=== PATIENT | female | born 1980 | race African-American/Black ===

== ENCOUNTER 2021-12-14 16:32 | Emergency (ER) | payer MEDICAID ==
[~2021-12-14] VITALS: Ht 170.2 cm; Wt 63.5 kg
[2021-12-14 17:15] LABS: Urine Bacteria NONE SEEN /hpf (None Seen); Urine Blood Negative /uL (Negative); Urine Specific Gravity 1.021 (1.001-1.035); Urine WBC 1 /hpf (0 - 5)
[2021-12-14 17:47] LABS: Basophils # (auto) 0 10 ^3/uL (0-0.2); Basophils % (auto) 0.7 % (0.0-2.0); Eosinophils # (auto) 0 10 ^3/uL (0-0.8); Eosinophils % (auto) 0.2 % (0.0-7.0); Hematocrit 37.4 % (36.0-46.0); Hemoglobin 12.7 g/dL (12.2-16.2); Lymphocytes # (auto) 1.9 10 ^3/uL (0.4-5.4); Lymphocytes % (auto) 40.8 % (10.0-50.0); Mean Corpuscular Hemoglobin 33.2 pg (28.0-32.0); Mean Corpuscular Hgb Conc. 33.8 g/dL (32.0-36.0); Mean Corpuscular Volume 98.1 fL (80.0-100.0); Monocytes # (auto) 0.3 10 ^3/uL (0-1.3); Monocytes % (auto) 5.9 % (0.0-12.0); Neutrophils # (auto) 2.5 10 ^3/uL (1.6-8.6); Neutrophils % (auto) 52.4 % (37.0-80.0); Nucleated Red Blood Cells % 0.1 %; Red Blood Cells 3.81 10^6/uL (4.0-5.20); Red Cell Distribution Width 13.8 % (11.8-14.3); White Blood Cell 4.7 10^3/uL (4.4-10.8)
[2021-12-14 18:13] LABS: Albumin 3.7 g/dL (3.4-5.0); Calcium 9.1 mg/dL (8.5-10.1); Potassium 4.1 mmol/L (3.5-5.1)
[2021-12-14 18:17] LABS: BUN/Creatinine Ratio 23.5; Bilirubin, Total 0.5 mg/dL (0.2-1.0); Total Protein 6.8 g/dL (6.4-8.2)
[2021-12-14 18:59] VITALS: BP 117/69
== END 2021-12-14 18:50 | disposition home or self-care (01) ==
LOC: ER 16:32
DX: R10.9 Unspecified abdominal pain (principal); Z90.710 Acquired absence of both cervix and uterus
CPT/HCPCS: 36415; 74022; 80053; 81001; 81025; 85025

== ENCOUNTER 2021-12-17 19:31 | Emergency (ER) | payer MEDICAID ==
[~2021-12-17] VITALS: Ht 172.7 cm; Wt 62.1 kg
[2021-12-17 20:06] LABS: Urine Bacteria FEW /hpf (None Seen); Urine Blood Negative /uL (Negative); Urine Specific Gravity 1.019 (1.001-1.035); Urine WBC 8 /hpf (0 - 5)
[2021-12-17 20:20] LABS: Basophils # (auto) 0 10 ^3/uL (0-0.2); Basophils % (auto) 0.7 % (0.0-2.0); Eosinophils # (auto) 0 10 ^3/uL (0-0.8); Eosinophils % (auto) 0.2 % (0.0-7.0); Hemoglobin 12.8 g/dL (12.2-16.2); Lymphocytes # (auto) 1.6 10 ^3/uL (0.4-5.4); Lymphocytes % (auto) 30.1 % (10.0-50.0); Mean Corpuscular Hgb Conc. 34.7 g/dL (32.0-36.0); Mean Corpuscular Volume 98.2 fL (80.0-100.0); Monocytes # (auto) 0.3 10 ^3/uL (0-1.3); Monocytes % (auto) 5.3 % (0.0-12.0); Neutrophils # (auto) 3.4 10 ^3/uL (1.6-8.6); Neutrophils % (auto) 63.7 % (37.0-80.0); Nucleated Red Blood Cells % 0.2 %; Red Blood Cells 3.77 10^6/uL (4.0-5.20); Red Cell Distribution Width 13.9 % (11.8-14.3); White Blood Cell 5.4 10^3/uL (4.4-10.8)
[2021-12-17 20:39] LABS: Albumin 3.9 g/dL (3.4-5.0); Calcium 9.2 mg/dL (8.5-10.1)
[2021-12-17 20:43] LABS: BUN/Creatinine Ratio 22.2; Bilirubin, Total 0.6 mg/dL (0.2-1.0); Total Protein 7.9 g/dL (6.4-8.2)
[2021-12-17] MEDS ORDERED: ACETAMINOPHEN 500 MG TAB PO ONE (22:30)
[2021-12-17] MEDS ORDERED: IOHEXOL 300 MG/ML 100ML BOTTLE IJ ONE (23:54)
[2021-12-18] MEDS ORDERED: CIPR500T4 PO (05:08)
[2021-12-18] MEDS ORDERED: ONDA-144 PO (05:08)
[2021-12-18] MEDS ORDERED: AMOX-277 PO (05:09)
[2021-12-18 05:38] VITALS: BP 117/83
== END 2021-12-18 05:38 | disposition home or self-care (01) ==
LOC: ER 19:31
DX: K52.9 Noninfective gastroenteritis and colitis, unspecified (principal); N39.0 Urinary tract infection, site not specified; Z90.710 Acquired absence of both cervix and uterus
CPT/HCPCS: 36415; 74177; 80053; 81001; 85025; 99285; Q9967

== ENCOUNTER 2022-05-10 07:00 | Day surgery (SDC) | payer MEDICAID ==
[~2022-05-10] VITALS: Ht 175.3 cm; Wt 63.5 kg
[~2022-05-10 07:00] MED LIST: ASPI-543 PO; ESTR1TAB5 PO; LEVO75CA3 PO
[2022-05-10] MEDS ORDERED: VERAPAMIL 2.5MG/ML INJ 2ML VIAL IV ONE (10:07)
[2022-05-10] MEDS ORDERED: NITROGLYCERIN 5MG/ML 10ML VIAL IV ONE (10:07)
[2022-05-10] MEDS ORDERED: ANGIOMAX 250 MG VIAL IV ONE (10:07)
[2022-05-10] MEDS ORDERED: LIDOCAINE 2%HCL (LOCAL ANESTH.) INJ 20ML MDV ONE (10:08)
[2022-05-10] MEDS ORDERED: SODIUM CHL 0.9% 0 ML ONE (10:08)
[2022-05-10] MEDS ORDERED: fentaNYL CITRATE 100 MCG/2 ML VL ONE (10:08)
[2022-05-10] MEDS ORDERED: MIDAZOLAM HCL 2MG/2ML 2ml VIAL (1mg/ml) ONE (10:08)
[2022-05-10] MEDS ORDERED: SODIUM CHL 0.9% 50 ML ONE (10:10)
[2022-05-10] MEDS ORDERED: IOHEXOL 350 MG/ML 100ML IJ ONE (10:14)
[2022-05-10] MEDS ORDERED: HEPARIN SODIUM (PORCINE) 5000 UNITS/ML 1ML VIAL ONE (10:20)
[2022-05-10 10:40] VITALS: BP 104/63
[2022-05-10 10:55] VITALS: BP 103/70
[2022-05-10 11:10] VITALS: BP 107/62
[2022-05-10 11:25] VITALS: BP 99/62
[2022-05-10 11:40] VITALS: BP 105/61
[2022-05-10 12:10] VITALS: BP 101/66
== END 2022-05-10 12:48 | disposition home or self-care (01) ==
LOC: CATH 07:00
PROVIDERS: ATTEND Internal Medicine Cardiovascular Disease
DX: R94.39 Abnormal result of other cardiovascular function study (principal); I25.10 Atherosclerotic heart disease of native coronary artery without angina pectoris; Z90.710 Acquired absence of both cervix and uterus; Z98.890 Other specified postprocedural states; Z79.899 Other long term (current) drug therapy; Z20.822 Contact with and (suspected) exposure to COVID-19
CPT/HCPCS: 93458; C1769; C1887; C1894; J1644; J2250; J3010; J3490; Q9967; U0003; 99152

== ENCOUNTER → 2024-01-07 | Outpatient (CLI) | payer MEDICAID ==
[~2024-01-07] MED LIST changes: +IOHEXOL 350 MG/ML 100ML IJ ONE
[2024-01-07 15:23] VITALS: BP 125/74; PULSE 73; RESP 16; O2SAT 100
[2024-01-07 15:35] VITALS: BP 123/78; PULSE 67; RESP 16; O2SAT 100
== END | disposition home or self-care (01) ==
LOC: Rad HDHVI 15:03
PROVIDERS: ATTEND Internal Medicine Cardiovascular Disease
DX: K22.4 Dyskinesia of esophagus (principal); Z79.899 Other long term (current) drug therapy; Z88.8 Allergy status to other drugs, medicaments and biological substances
CPT/HCPCS: 71275; G0463; Q9967

== ENCOUNTER → 2024-02-04 | Outpatient (CLI) | payer MEDICAID ==
[~2024-02-04] MED LIST changes: -IOHEXOL 350 MG/ML 100ML IJ ONE
== END | disposition home or self-care (01) ==
LOC: Rad HDHVI 14:00
PROVIDERS: ATTEND Internal Medicine Cardiovascular Disease
DX: I08.1 Rheumatic disorders of both mitral and tricuspid valves (principal); I10 Essential (primary) hypertension
CPT/HCPCS: 93306

== ENCOUNTER 2025-02-15 14:05 | Inpatient (IN) | payer MEDICAID ==
[~2025-02-15] VITALS: Ht 175.3 cm; Wt 73.4 kg
[~2025-02-15 14:05] MED LIST changes: +ACYC1TAB2 PO; +ATOR20TA PO; +DICL1GEL73 TOP; +ESTR2TAB4 PO; +IVAB1TAB2 PO; +LEVO25TA6 PO; +LIDO1PAD55 TOP; +NITR0.2D5 TOP; +TRAZ-227 PO; +VENL1TAB97 PO
--- NOTE | 2025-02-15 14:52 | ED.PDOC ---
HPI Comments 44 y/o F, with PMHx of CHF, ST, and POTT's presents to the ED for CC of chest pain. Patient states, that she has been experiencing substernal intermittent chest pain onset, Friday (02/13/25). Patient relays, symptoms have now worsened with associated fatigue, dizziness, and nausea. Patient denies shortness of breath, palpitations, headache, or abdominal pain. No other symptoms or modifying factors present at this time. Chief Complaint: Chest Pain Time Seen by MD: 14:25 Primary Care Provider: [facility] Reviewed Notes: Nurses Notes, Medications, Allergies Allergies: Coded Allergies: NO KNOWN ALLERGIES (Unverified , 05/08/22) Home Meds Reported Medications Estradiol (Estrace) 1 Mg Tab, 1 TAB PO DAILY for hormone therapy, #30 TAB 11 Refills 05/08/22 Aspirin (Aspir-Low) 81 Mg Tab, 81 MG PO DAILY for chest pain, MG 05/08/22 Levothyroxine Sodium (Levothyroxine Sodium) 75 Mcg Cap, 75 MCG PO DAILY for hypothyroidism, CAP 05/08/22 Information Source: Patient Mode of Arrival: Ambulatory Severity: Moderate Timing: Days Duration: Since onset Prehospital treatment: None Location: Substernal Radiation: No Radiation Onset: At Rest Cardiac Risk Factors: None PE Risk Factors: None History of: None Modifying Factors: Nothing Associated Signs and Symptoms: None Past Medical History PAST MEDICAL HISTORY: CHF Past Medical History (Other): ST, MATOS Surgical History: Hysterectomy [employer] History: Endometriosis, Ovarian Cysts Family History Family History: Reviewed,noncontributory to illness Social History Smoker: Non-Smoker Alcohol: Denies ETOH Use Drugs: Denies Drug Use Lives In: Home Constitutional: reports: fatigue; denies: chills, diaphoresis, fever, malaise, sweats, weakness, others EENTM: denies: blurred vision, double vision, ear bleeding, ear discharge, ear drainage, ear pain, ear ringing, eye pain, eye redness, hearing loss, mouth pain, mouth swelling, nasal discharge, nose bleeding, nose congestion, nose pain, photophobia, tearing, throat pain, throat swelling, voice changes, others Respiratory: denies: cough, hemoptysis, orthopnea, SOB at rest, shortness of breath, SOB with excertion, stridor, wheezing, others Cardiovascular: reports: chest pain; denies: dizzy spells, diaphoresis, Dyspnea on exertion, edema, irregular heart beat, left arm pain, lightheadedness, palpitations, PND, syncope, others Gastrointestinal: reports: nausea; denies: abdomen distended, abdominal pain, blood streaked bowels, constipated, diarrhea, dysphagia, difficulty swallowing, hematemesis, melena, poor appetite, poor fluid intake, rectal bleeding, rectal pain, vomiting, others Genitourinary: denies: abnormal vagina bleeding, burning, dyspareunia, dysuria, flank pain, frequency, hematuria, incontinence, pain, , vagina discharge, urgency, others Neurological: reports: dizziness; denies: fainting, headache, left sided numbness, left sided weakness, numbness, paresthesia, pre-existing deficit, right sided numbness, right sided weakness, seizure, speech problems, tingling, tremors, weakness, others Musculoskeletal: denies: back pain, gout, joint pain, joint swelling, muscle pain, muscle stiffness, neck pain, others Integumetry: denies: bruises, change in color, change in hair/nails, dryness, laceration, lesions, lumps, rash, wounds, others Allergic/Immunocompromised: denies: Difficulty Healing, Frequent Infections, Hives, Itching, others Hematologic/Lymphatic: denies: anemia, blood clots, easy bleeding, easy bruising, swollen glands, others Endocrine: denies: excessive hunger, excessive sweating, excessive thirst, excessive urination, flushing, intolerance to cold, intolerance to heat, unexplained weight gain, unexplained weight loss, others Psychiatric: denies: anxiety, bipolar disorder, depression, hopeless, panic disorder, schizophrenia, sleepless, suicidal, others All Other Systems: Reviewed and Negative Physical Exam General Appearance: Moderate Distress HEENT: Normal ENT Inspection, Pharynx Normal, TMs Normal Neck: Full Range of Motion, Non-Tender, Normal, Normal Inspection Respiratory: Chest Non-Tender, Lungs Clear, No Accessory Muscle Use, No Respiratory Distress, Normal Breath Sounds Cardiovascular: No Edema, No JVD, No Murmur, No Gallop, Normal Peripheral Pulses, Regular Rate/Rhythm Breast Exam: Deferred Gastrointestinal: No Organomegaly, Non Tender, No Pulsatile Mass, Normal Bowel Sounds, Soft Genitalia: Deferred Pelvic: Deferred Rectal: Deferred Extremities: No calf tenderness, Normal capillary refill, Normal inspection, Normal range of motion, Non-tender, No pedal edema Musculoskeletal : Apperance: Normal Neurologic: Alert, act tutor II-XII nml as Tested, No Motor Deficits, Normal Affect, Normal Mood, No Sensory Deficits Cerebellar Function: Normal Reflexes: Normal Skin: Dry, Normal Color, Warm Peripheral Pulses: 3+ Radial (R), 3+ Radial (L) Lymphatic: No Adenopathy Was a procedure done? Was a procedure done?: No CP Differential Dx Differential Diagnosis: A-fib, A-Flutter, Angina, Anxiety / Panic Attack, Atrial Dysrhythmia, Electrolyte Disorder, [place], Sinus Tachycardia Differential Diagnosis: HTN Essential, HTN Accelerated X-Ray, Labs, Meds, VS Vital Signs Date Time Temp Pulse Resp B/P (MAP) Pulse Ox O2 Delivery O2 Flow Rate FiO2 02/15/25 14:12 64 02/15/25 14:07 97.7 67 20 107/76 (86) 99 97.7 Lab Test 02/15/25 14:10 Range/Units Troponin I High Sensitivity < 3 L </=34 ng/L Patient alert. Complaining of chest pain. Vitals stable. Answering questions. Has a chronic cardiac condition. History of CHF. Cardiac marker within normal limits. Continues to have chest pain. Time of 1ST Reevaluation: 14:55 Reevaluation 1ST: Unchanged Patient Education/Counseling: Diagnosis, Treatment Family Education/Counseling: No Family Present SEPSIS Sepsis Screen Date sepsis recognized/suspect: Feb 15, 2025 Time Sepsis recognized/suspect: 1407 Recent Procedure: No On Antibiotic Therapy: No Respiratory Rate >20: No Heart Rate >90: No Temp<36 C (96.8 F) or >38.3 C: No SBP <90 or MAP <65 mmHG: No New Acute Mental Status Change: No Is the patient on CPAP, BIPAP,: No Physician Orders Electrocardigram (02/15/25 14:07) Electrocardigram (02/15/25 15:07) Electrocardigram (02/15/25 17:07) Troponin-I Hs (02/15/25 15:07) Troponin-I Hs (02/15/25 17:07) Vital Signs Date Time Temp Pulse Resp B/P (MAP) Pulse Ox O2 Delivery O2 Flow Rate FiO2 02/15/25 14:12 64 02/15/25 14:07 97.7 67 20 107/76 (86) 99 97.7 Departure 1 Departure Time of Disposition: 15:02 Impression: Primary Impression: Chest pain of unknown etiology Disposition: ADMITTED INPATIENT Admit to: Med Surg Condition: Guarded Critical Care Note Critical Care Time?: No Stability Stability form required: No Heart Score Heart Score: Heart Score Response (Comments) Value History Slightly Suspicious 0 EKG N/A 0 Age <45 0 Risk Factors 1 or 2 risk factors 1 Troponin Normal limit 0 Total 1 I personally scribed for FEDERICA OLIVEIRA MD ([email or web address]) on 02/15/25 at 14:52. Electronically submitted by Moni Cueva ([email or web address]). FEDERICA OLIVEIRA MD Feb 15, 2025 14:52
[2025-02-15 15:17] LABS: Hematocrit 43.7 % (36.0-46.0); Hemoglobin 14.7 g/dL (12.2-16.2); Mean Corpuscular Hemoglobin 32.6 pg (28.0-32.0); Mean Corpuscular Volume 96.9 fL (80.0-100.0); Nucleated Red Blood Cells % 0.1 %
[2025-02-15 15:21] LABS: Potassium 3.8 mmol/L (3.5-5.1); Sodium 144 mmol/L (136-145)
[2025-02-15 15:22] LABS: Anion Gap 7 (5-15); Calcium 9.5 mg/dL (8.7-10.4); Carbon Dioxide 26 mmol/L (20-31)
[2025-02-15 15:27] LABS: BUN/Creatinine Ratio 15.8 (10.0-20.0); Blood Urea Nitrogen 15 mg/dL (9-23); Chloride 111 mmol/L (98-107); Glucose 95 mg/dL (74-106)
[2025-02-15 16:15] LABS: Urine Protein, UAD Negative (Negative)
[2025-02-15] MEDS ORDERED: ACETAMINOPHEN 325 MG TAB PO PRN (18:30)
--- NOTE | 2025-02-15 21:30 | DVHHP2 ---
History of Present Illness Reason for Visit: Chest pain of unknown etiology History of Present Illness The patient is a 44-year-old female with past medical history of thyroid disease, CHF, sinus tachycardia, and MATOS who presented to [facility] ED with complaint of chest pain. Patient reports she has been experi encing substernal intermittent chest pain since on Thursday February 13, 2025. Patient reports symptoms progressively get worse with fatigue, nausea, dizziness, getting worse that prompted this visit. Patient was seen and evaluated in the ED, laboratory data shows WBC 6.7, platelets 207, sodium 144, potassium 3.8, BUN 15, creatinine 0.95, glucose 95, troponin < 3, BNP 4.33, TSH 1.47, blood pressure 115/72, heart rate 59, temperature 97.7 F, O2 saturation 99% on room air. Please see medication orders section in the computer. On my assessment, patient denied chest pain at this moment, no palpitations, no headache, no dizziness, no diaphoresis, no shortness of breath, no nausea, no vomiting, no fever, no chills. Patient was admitted for further evaluation and medical management. Past Medical History CHF, ST, MATOS, Thyroid Endometriosis, Ovarian Cysts Past Surgical History Hysterectomy Family History Reviewed, noncontributory to the management of this case. Past Social History The patient lives at home, denies smoking, alcohol or illicit drugs abuse. Review of Systems Constitutional: Yes: Weakness, Other (Fatigue); No: Fever, Chills, Sweats, Malaise Eyes: No: Pain, Vision change, Conjunctivae inflammation, Eyelid inflammation, Other, Redness ENT: No: Ear pain, Ear discharge, Nose pain, Nose discharge, Nose congestion, Mouth pain, Mouth swelling, Throat pain, Throat swelling, Other Respiratory: No: Cough, Dry, Shortness of breath, SOB with excertion, Wheezing, Hemoptysis, Pleuritic Pain, Sputum, Wheezing, Other Cardiovascular: Chest Pain; No: Palpitations, Orthopnea, Paroxysmal Noc. Dyspnea, Edema, Lt Headedness, Other Gastrointestinal: Nausea; No: Vomiting, Abdominal Pain, Diarrhea, Constipation, Melena, Hematochezia, Other Genitourinary: No Dysuria, No Frequency, No Incontinence, No Hematuria, No Retention, No Other Musculoskeletal: No: other, neck pain, shoulder pain, arm pain, back pain, hand pain, leg pain, foot pain Skin: No: Rash, Lesions, Jaundice, Bruising, Other Neurological: Other (Dizziness); No: Weakness, Numbness, Incoordination, Change in speech, Confusion, Seizures Allergies: Coded Allergies: NO KNOWN ALLERGIES (Unverified , 05/08/22) Medications Current Medications Medications Dose Ordered Sig/Mady Route Start Time Stop Time Status Last Admin Dose Admin Aspirin 81 mg DAILY PO 02/16/25 10:00 Levothyroxine Sodium 75 mcg QAM@0600 PO 02/16/25 06:00 UNV Atorvastatin Calcium 10 mg HS PO 02/15/25 22:00 Acetaminophen/ Hydrocodone Bitart 1 tab Q4HP PRN PO 02/15/25 18:30 Ondansetron HCl 4 mg Q4HP PRN IV 02/15/25 18:30 Docusate Sodium 100 mg BIDPRN PRN PO 02/15/25 18:30 Acetaminophen 650 mg Q6HP PRN PO 02/15/25 18:30 Exam Vital Signs Vital Signs Date Time Temp Pulse Resp B/P (MAP) Pulse Ox O2 Delivery O2 Flow Rate FiO2 02/15/25 15:40 59 18 100 Room Air 02/15/25 15:40 115/72 (86) 02/15/25 14:07 97.7 97.7 General Appearance: Alert, Oriented X3, Cooperative, No acute distress HEENT: Atraumatic, PERRLA, EOMI, Mucous membr. moist/pink Respiratory: Clear to auscultation, Normal air movement Cardiovascular: Regular rate, Normal S1, Normal S2, No murmurs Abdominal: Normal bowel sounds, Soft, No tenderness, No hepatospenomegaly, No masses Extremities: No clubbing, No cyanosis, No edema, Normal pulses, No tenderness/swelling Skin: No rashes, No breakdown, No significant lesion Neuro: Normal speech, Normal tone, Sensation intact, Cranial nerves 3-12 NL, R eflexes 2+, Other (Generalized weakness) Psych/Mental Status: Mental status NL, Mood NL Labs/Xrays Chest pain of unknown etiology Labs Test 02/15/25 16:06 02/15/25 15:23 02/15/25 14:10 Range/Units Urine Color Yellow Yellow Urine Clarity Clear Clear Urine pH 5.5 5.0-9.0 Urine Specific [place] 1.031 1.001-1.035 Urine Protein Negative Negative Urine Ketones Negative Negative Urine Blood Negative Negative /uL Urine Nitrite Negative Negative Urine Bilirubin Negative Negative Urine Urobilinogen Normal Negative mg/dL Urine Leukocyte Esterase Negative Negative /uL Urine RBC 1 0 - 4 /hpf Urine Microscopic WBC < 1 0-5 /HPF Urine Squamous Epithelial Cells Few <5 /hpf Urine Bacteria None seen None Seen /hpf Urine Mucus Few None Seen Urine Glucose Normal Normal mg/dL Troponin I High Sensitivity < 3 L </=34 ng/L White Blood Count 6.7 4.4-10.8 10^3/uL Red Blood Count 4.51 4.0-5.20 10^6/uL Hemoglobin 14.7 12.2-16.2 g/dL Hematocrit 43.7 36.0-46.0 % Mean Corpuscular Volume 96.9 80.0-100.0 fL Mean Corpuscular Hemoglobin 32.6 H 28.0-32.0 pg Mean Corpuscular Hemoglobin Concent 33.7 32.0-36.0 g/dL Red Cell Distribution Width 12.9 11.8-14.3 % Platelet Count 207 140-450 10^3/uL Mean Platelet Volume 7.9 6.9-10.8 fL Neutrophils (%) (Auto) 55.0 37.0-80.0 % Lymphocytes (%) (Auto) 37.9 10.0-50.0 % Monocytes (%) (Auto) 5.9 0.0-12.0 % Eosinophils (%) (Auto) 0.5 0.0-7.0 % Basophils (%) (Auto) 0.7 0.0-2.0 % Neutrophils # (Auto) 3.7 1.6-8.6 10 ^3/uL Lymphocytes # (Auto) 2.5 0.4-5.4 10 ^3/uL Monocytes # (Auto) 0.4 0-1.3 10 ^3/uL Eosinophils # (Auto) 0 0-0.8 10 ^3/uL Basophils # (Auto) 0 0-0.2 10 ^3/uL Nucleated Red Blood Cells 0.1 % Sodium Level 144 136-145 mmol/L Potassium Level 3.8 3.5-5.1 mmol/L Chloride Level 111 H 98-107 mmol/L Carbon Dioxide Level 26 20-31 mmol/L Anion Gap 7 5-15 Blood Urea Nitrogen 15 9-23 mg/dL Creatinine 0.95 0.550-1.02 mg/dL Glomerular Filtration Rate Calc 75 >90 mL/min BUN/Creatinine Ratio 15.8 10.0-20.0 Serum Glucose 95 74-106 mg/dL Calcium Level 9.5 8.7-10.4 mg/dL B-Type Natriuretic Peptide 4.53 0-100 pg/mL Thyroid Stimulating Hormone (TSH) 1.47 0.55-4.78 uIU/mL Assessment/Plan Assessment/Plan Chest pain of unknown etiology Generalized weakness Plan 1. Admit to telemetry unit 2. Breathing treatment 3. Pain control management 4. Management of fluids and electrolytes 5. Consultation for hospitalist 6. Diagnostic tests chest x-ray 7. DVT prophylaxis on aspirin 8. Repeat labs CBC, CMP in a.m. 9. Continue with current medical management 10. Treatment plan discussed with patient and RN. Patient verbalized understanding. Plan discussed with: Patient, Other (RN) My Orders Orders - JESE AMBRIZ DNP Procedure Category Date Status Time Aspirin Tablet PHA 02/16/25 In Process 10:00 Levothyroxine Tablet PHA 02/16/25 Logged (Synthroid Tablet) 06:00 Atorvastatin (Lipitor) PHA 02/15/25 In Process 22:00 Allergies DANILO 02/15/25 In Process 18:29 Code Status CODE 02/15/25 Transmitted 18:29 Oxygen Per Hour RT 02/15/25 Transmitted 18:29 Hydrocodone-Acet PHA 02/15/25 In Process 5/325mg Tab ([place] 18:30 Ondansetron Hcl PHA 02/15/25 In Process (Zofran) 18:30 Docusate Sodium PHA 02/15/25 In Process Capsule (Colace 18:30 Complete Blood Count LAB 02/16/25 Verified 04:00 Comprehensive LAB 02/16/25 Verified Metabolic Panel 04:00 Cardiac DIET 02/15/25 Transmitted Diet-2gna,Lofat,Lochol Dinner Condition: Serious DANILO 02/15/25 In Process 18:29 Acetaminophen Tablet PHA 02/15/25 In Process (Tylenol Tablet) 18:30 Bedrest With Bathroom DANILO 02/15/25 In Process Privileg 18:29 Sequential DANILO 02/15/25 In Process Compression Device Admit ADMIT 02/15/25 Verified 21:14 Nitroglycerin PHA 02/15/25 Verified Sublingual (Ntrostat 21:15 Morphine Sulfate [facility] 02/15/25 Verified Injection 21:15 Stat Ekg For Chest [facility] 02/15/25 Verified Pain 21:14 Notify Md Of Changes [facility] 02/15/25 Verified From Base 21:14 Electrician Substation For [facility]ANNER 02/15/25 Verified 24 Hours 21:14 Emergency Dysrhythmia [facility] 02/15/25 Verified Protocol 21:14 Rhythm Strips Once [facility] 02/15/25 Verified Every Shift 21:14 Oxygen By Nasal RT 02/15/25 Verified Cannula 21:14 Problem List: (1) Chest pain of unknown etiology (2) Generalized weakness Date of Service: Feb 15, 2025 Billing Provider: JESE AMBRIZ DNP Common Visit Codes: [id number] INP/OBS CARE (HIGH) JESE AMBRIZ DNP Feb 15, 2025 21:30
[2025-02-15] MEDS: ATORVASTATIN 20 MG TAB PO SCH (22:00)
[2025-02-16] VITALS (7 sets, daily range): BP systolic 102–117; BP diastolic 63–77; PULSE 60–74; RESP 13–18; TEMP 97.5–98.6; O2SAT 96–100
[2025-02-16] MEDS: MORPHINE SULFATE INJ 2 MG/ml SYRG IV PRN (04:48)
[2025-02-16] MEDS: LEVOTHYROXINE SODIUM 25 MCG TAB PO SCH (04:56)
[2025-02-16 05:01] LABS: Hematocrit 42.8 % (36.0-46.0); Hemoglobin 14.6 g/dL (12.2-16.2); Mean Corpuscular Hemoglobin 32.5 pg (28.0-32.0); Mean Corpuscular Volume 95.3 fL (80.0-100.0); Nucleated Red Blood Cells % 0.1 %
[2025-02-16 05:19] LABS: Alanine Aminotransferase 18 U/L (7-40); Albumin 4.5 g/dL (3.2-4.8); Alkaline Phosphatase 67 U/L (46-116); Anion Gap 6 (5-15); BUN/Creatinine Ratio 11.5 (10.0-20.0); Bilirubin, Total 0.7 mg/dL (0.2-1.0); Blood Urea Nitrogen 10 mg/dL (9-23); Calcium 9.6 mg/dL (8.7-10.4); Carbon Dioxide 26 mmol/L (20-31); Glucose 89 mg/dL (74-106); Potassium 4.0 mmol/L (3.5-5.1); Sodium 142 mmol/L (136-145); Total Protein 7.3 g/dL (5.7-8.2)
[2025-02-16 05:23] LABS: Chloride 110 mmol/L (98-107)
[2025-02-16] MEDS: NITROGLYCERIN 0.4 MG SL TAB SL PRN (07:35)
[2025-02-16] MEDS: ONDANSETRON HCL 4 MG/2 ML VIAL IV PRN (08:18)
--- NOTE | 2025-02-16 14:24 | ECG ---
[facility] Test Date: 2025-02-15 Test Time: 14:12:12 Pat Name: DOE THOMPSON Department: ER Room: 0297T Gender: F Conference Translator: DEEDEE : 1980 Requested By: FEDERICA OLIVEIRA Order Number: [id number] Reading MD: Anthony Lowe Measurements Intervals [place] Rate: 64 P: 74 TN: 165 QRS: 34 QRSD: 86 T: 65 QT: 420 QTc: 434 Interpretive Statements Sinus rhythm Probable left atrial enlargement Left ventricular hypertrophy ST elev, probable normal early repol pattern Electronically Signed On 02-19-2025 19:53:03 PDT by Anthony Lowe Please click the below link to view image of tracing.
[2025-02-17] VITALS (8 sets, daily range): BP systolic 100–125; BP diastolic 53–82; PULSE 57–89; RESP 17–21; TEMP 96.7–98.2; O2SAT 98–100
--- NOTE | 2025-02-17 17:02 | DVHINCON2 ---
Date Seen: Feb 17, 2025 Referring Physician MD Jacquelyn Reason for Consultation Chest pain History of Present Illness This is a 44-year-old female patient who presents to the emergency room with chief complaint of chest pain. The patient reports that the chest pain began approximately four days ago. She describes the pain as unprovoked, pressure- like in nature, substernal, with some radiation under her left breast. Associated symptoms include shortness of breath. She describes worsening of pain when lying flat. Initial twelve lead electrocardiogram reveals normal sinus rhythm with left ventricular hypertrophy. Troponin levels have been negative. Significant past medical history includes congestive heart failure, myocardial infarction without stent placement, tricuspid and mitral regurgita tion, dyslipidemia, postural orthostatic tachycardia syndrome (POTS), thyroid disease, CVA without residual deficit, vaginal cancer status post total hysterectomy, and asthma. The patient reports that she sees syrup mixer assistant out of [facility]. She states that she had a coronary angiogram with left heart catheterization in October 2023, in which no catheter based intervention was deemed necessary. Past Medical History Past medical history reviewed. No other significant than mentioned above. Past Surgical History Total hysterectomy Appendectomy Family History: Diabetes mellitus G8 MOTHER Family History Family history reviewed. Social History Denies the use of tobacco, alcohol or illicit drugs. Allergies: Coded Allergies: NO KNOWN ALLERGIES (Unverified , 05/08/22) Home Meds Reported Medications Venlafaxine Hydrochloride (Venlafaxine Hcl) 37.5 Mg Tab, 37.5 MG PO, TAB 02/16/25 Ivabradine Hydrochloride (Corlanor) 7.5 Mg Tab, 7.5 MG PO, TAB 25 Atorvastatin Calcium (Lipitor) 20 Mg Tab, 20 MG PO, TAB 25 Estradiol (Estrace) 1 Mg Tab, 1 TAB PO DAILY for hormone therapy, #30 TAB 11 Refills 05/08/22 Aspirin (Aspir-Low) 81 Mg Tab, 81 MG PO DAILY for chest pain, MG 05/08/22 Levothyroxine Sodium (Levothyroxine Sodium) 75 Mcg Cap, 75 MCG PO DAILY for hypothyroidism, CAP 05/08/22 Home Meds Home medications reviewed. Review of Systems Constitutional: No symptom reported Ears, Nose, & Throat: No symptom reported Eyes: No symptom reported Neurological: No symptoms reported Pulmonary/Respiratory: No symptoms reported Cardiovascular: Chest pain Gastrointestinal: No symptom reported Genitourinary: No symptom reported Musculoskeletal: No symptom reported Skin: No symptom reported Psychiatric: No symptom reported Endocrine: No symptom reported Hematologic/Lymphatic: No symptom reported Vital Signs Vital Signs Date Time Temp Pulse Resp B/P (MAP) Pulse Ox O2 Delivery O2 Flow Rate FiO2 02/17/25 12:46 97.4 64 21 109/68 (82) 100 97.4 02/17/25 08:00 Room Air* 0 21 Physical Exam General Appearance: Cooperative. Well-developed. Well-nourished. No acute distress. Pulmonary/Respiratory: Clear, bilateral breaths sounds. Cardiovascular/Chest: Regular rate and rhythm. Peripheral Pulses: 2+ Radial (R). 2+ Radial (L). 2+ Pedal (R). 2+ Pedal (L) Abdominal Exam: Normal bowel sounds. Ankle Exam: Negative ankle edema Lower extremities: Negative lower extremity edema Neuro/Mental Status: A/OX4, coherent. Thoughts/Psych: Normal thought pattern. Appropriate mood and affect. Good judgment and insight. Appearance: No acute distress. Skin Exam: Normal inspection. Normal color. Warm and dry. Labs/Diagnostic Data Labs Test 02/16/25 04:32 02/15/25 16:06 02/15/25 15:23 02/15/25 14:10 Range/Units White Blood Count 6.9 4.4-10.8 10^3/uL Red Blood Count 4.50 4.0-5.20 10^6/uL Hemoglobin 14.6 12.2-16.2 g/dL Hematocrit 42.8 36.0-46.0 % Mean Corpuscular Volume 95.3 80.0-100.0 fL Mean Corpuscular Hemoglobin 32.5 H 28.0-32.0 pg Mean Corpuscular Hemoglobin Concent 34.2 32.0-36.0 g/dL Red Cell Distribution Width 13.0 11.8-14.3 % Platelet Count 211 140-450 10^3/uL Mean Platelet Volume 8.1 6.9-10.8 fL Neutrophils (%) (Auto) 48.5 37.0-80.0 % Lymphocytes (%) (Auto) 42.2 10.0-50.0 % Monocytes (%) (Auto) 7.8 0.0-12.0 % Eosinophils (%) (Auto) 0.8 0.0-7.0 % Basophils (%) (Auto) 0.7 0.0-2.0 % Neutrophils # (Auto) 3.4 1.6-8.6 10 ^3/uL Lymphocytes # (Auto) 2.9 0.4-5.4 10 ^3/uL Monocytes # (Auto) 0.5 0-1.3 10 ^3/uL Eosinophils # (Auto) 0.1 0-0.8 10 ^3/uL Basophils # (Auto) 0 0-0.2 10 ^3/uL Nucleated Red Blood Cells 0.1 % Sodium Level 142 136-145 mmol/L Potassium Level 4.0 3.5-5.1 mmol/L Chloride Level 110 H 98-107 mmol/L Carbon Dioxide Level 26 20-31 mmol/L Anion Gap 6 5-15 Blood Urea Nitrogen 10 9-23 mg/dL Creatinine 0.87 0.550-1.02 mg/dL Glomerular Filtration Rate Calc 83 >90 mL/min BUN/Creatinine Ratio 11.5 10.0-20.0 Serum Glucose 89 74-106 mg/dL Calcium Level 9.6 8.7-10.4 mg/dL Total Bilirubin 0.7 0.2-1.0 mg/dL Aspartate Amino Transferase (AST) 27 <34 U/L Alanine Aminotransferase (ALT) 18 7-40 U/L Alkaline Phosphatase 67 46-116 U/L Total Protein 7.3 5.7-8.2 g/dL Albumin 4.5 3.2-4.8 g/dL Urine Color Yellow Yellow Urine Clarity Clear Clear Urine pH 5.5 5.0-9.0 Urine Specific [place] 1.031 1.001-1.035 Urine Protein Negative Negative Urine Ketones Negative Negative Urine Blood Negative Negative /uL Urine Nitrite Negative Negative Urine Bilirubin Negative Negative Urine Urobilinogen Normal Negative mg/dL Urine Leukocyte Esterase Negative Negative /uL Urine RBC 1 0 - 4 /hpf Urine Microscopic WBC < 1 0-5 /HPF Urine Squamous Epithelial Cells Few <5 /hpf Urine Bacteria None seen None Seen /hpf Urine Mucus Few None Seen Urine Glucose Normal Normal mg/dL Troponin I High Sensitivity < 3 L </=34 ng/L B-Type Natriuretic Peptide 4.53 0-100 pg/mL Thyroid Stimulating Hormone (TSH) 1.47 0.55-4.78 uIU/mL Assessment Chest pain, likely acute pericarditis vs coronary vasospasm Chronic HFpEF, NYHA class II-III Mild mitral and tricuspid valve regurgitation (per previous echocardiogram in 2023) Postural orthostatic tachycardia syndrome (POTS) Hyperlipidemia Thyroid disease CVA without residual deficit Asthma Plan/Recommendation We will continue with the following plan/recommendations (Dr. Lowe): We will proceed with obtaining a transthoracic echocardiogram to evaluate cardiac function. Patient clinical presentation likely in keeping with acute pericarditis. We will initiate Toradol p.r.n. for pain. The patient had an angiogram in October of 2023 in which she states no catheter based intervention was deemed necessary. We will initiate the patient on pericarditis treatment plan including colchicine and ibuprofen. Check ESR and CRP levels. Continue with close cardiac surveillance and notify cardiology team immediately for any ECG changes. Further recommendations per clinical course and progression. Thank you for allowing us to care for this patient. Please call with any questions or concerns. Critical care time spent: 44 minutes This medical document was created using an electronic medical record system with voice recognition software and computerized dictation system. Although this do cument has been carefully reviewed, there might still be some phonetic and typographical errors. Occasional wrong-word or ``sound-alike substitutions may have occurred due to the inherent limitations of voice recognition software. These areas are purely typographical due to imperfections of the software programs and do not reflect any compromise in the patient's medical care. Please read the chart carefully and recognize, using context, where these substitutions have occurred. Plan discussed with: Patient NYHA Physical activity limitations: Class2(Slight)fatigue,sob Date of Service: Feb 17, 2025 Billing Provider: GABRIELLE ROJO Cardiology Common Codes: [id number] INP/OBS CARE (High) Cardiology Consultation Codes: [id number] CONSULT <45MIN GABRIELLE ROJO Feb 17, 2025 17:02
[2025-02-17] MEDS ORDERED: KETOROLAC TROMETH 30 MG/ML 1ML VIAL IV PRN (17:15)
[2025-02-17] MEDS: DOCUSATE SOD 100 MG CAP PO PRN (17:17)
[2025-02-17] MEDS: HYDROcodone-ACET 5/325MG TAB PO PRN (18:51)
[2025-02-17] MEDS ORDERED: IBUPROFEN 600 MG TAB PO SCH (22:00)
[2025-02-17] MEDS ORDERED: COLCHICINE 0.6 MG CAP PO SCH (22:00)
[2025-02-17] MEDS: COLCHICINE 0.6 MG CAP PO ONE (22:45)
[2025-02-17] MEDS ORDERED: NITROGLYCERIN 0.4 MG SL TAB SL PRN (23:00)
[2025-02-17] MEDS ORDERED: HYDROcodone-ACET 5/325MG TAB PO PRN (23:00)
[2025-02-17] MEDS ORDERED: DOCUSATE SOD 100 MG CAP PO PRN (23:00)
[2025-02-18] VITALS (9 sets, daily range): BP systolic 91–132; BP diastolic 47–86; PULSE 18–86; RESP 16–21; TEMP 96.3–98.4; O2SAT 98–100
[2025-02-18] MEDS: KETOROLAC TROMETH 30 MG/ML 1ML VIAL ONE (00:31)
[2025-02-18] MEDS: KETOROLAC TROMETH 30 MG/ML 1ML VIAL IV PRN (00:34)
[2025-02-18] MEDS: ONDANSETRON HCL 4 MG/2 ML VIAL IV PRN (05:15)
[2025-02-18] MEDS: IBUPROFEN 600 MG TAB PO SCH (06:00)
[2025-02-18] MEDS: LEVOTHYROXINE SODIUM 25 MCG TAB PO SCH (06:25)
--- NOTE | 2025-02-18 08:17 | ECG ---
[facility] Test Date: 2025-02-17 Test Time: 09:15:03 Pat Name: ODE THOMPSON Department: Respiratoy Room: 0297T B Gender: F Manager Ethics: RAVIN : 1980 Requested By: DINORAH COLLAZO Order Number: [id number] Reading MD: Anthony Lowe Measurements Intervals [place] Rate: 58 P: 60 NE: 149 QRS: 41 QRSD: 92 T: 61 QT: 444 QTc: 437 Interpretive Statements Sinus rhythm Consider left ventricular hypertrophy ST elev, probable normal early repol pattern Baseline wander in lead(s) V6 Electronically Signed On 02-19-2025 20:20:40 PDT by Anthony Lowe Please click the below link to view image of tracing.
[2025-02-18] MEDS: PANTOPRAZOLE 40 MG/10 ML VIAL INJ IV SCH (08:31)
[2025-02-18] MEDS: COLCHICINE 0.6 MG CAP PO SCH (08:32)
[2025-02-18] MEDS ORDERED: PANTOPRAZOLE 40 MG/10 ML VIAL INJ IV SCH (10:00)
[2025-02-18] MEDS: DOCUSATE SOD 100 MG CAP PO PRN (18:09)
--- NOTE | 2025-02-18 18:10 | DVHPN2 ---
Consult Progress Note Subjective Other Systems: Patient is still having episodes of chest pain. Reports relief with Toradol Objective vital signs Vital Sign Date Time Temp Pulse Resp B/P (MAP) Pulse Ox O2 Delivery O2 Flow Rate FiO2 02/18/25 17:19 97.5 61 21 125/77 (93) 100 97.5 02/18/25 08:00 Room Air* 0 21 Total Intake and Output 02/17/25 02/17/25 02/18/25 15:00 23:00 07:00 Intake Total 75 ml Balance 75 ml medications Current Medications Medications Dose Ordered Sig/Mady Route Start Time Stop Time Status Last Admin Dose Admin Aspirin 81 mg DAILY PO 02/18/25 10:00 02/18/25 08:31 81 MG Levothyroxine Sodium 75 mcg QAM@0600 PO 02/18/25 06:00 02/18/25 06:25 75 MCG Atorvastatin Calcium 10 mg HS PO 02/18/25 22:00 Ondansetron HCl 4 mg Q4HP PRN IV 02/17/25 23:00 02/18/25 09:40 4 MG Acetaminophen 650 mg Q6HP PRN PO 02/17/25 23:00 Nitroglycerin 0.4 mg Q5MINP PRN SL 02/17/25 23:00 Morphine Sulfate 2 mg Q30M PRN IV 02/17/25 23:00 Ketorolac Tromethamine 15 mg Q6HPRN PRN IV 02/17/25 23:00 02/22/25 22:59 02/18/25 08:53 15 MG Ibuprofen 600 mg TID PO 02/18/25 06:00 02/18/25 14:07 600 MG Pantoprazole Sodium 40 mg DAILY IV 02/18/25 10:00 02/18/25 08:31 40 MG Colchicine 0.6 mg Q12HR PO 02/18/25 10:00 02/18/25 08:32 0.6 MG Acetaminophen/ Hydrocodone Bitart 1 tab Q4HP PRN PO 02/17/25 23:00 Docusate Sodium 100 mg BIDPRN PRN PO 02/17/25 23:00 Examination: GENERAL:Normal, LUNGS:Normal, CVS:Normal, NEURO:Normal laboratory and microbiology Laboratory Tests 02/16/25 04:32 Test 02/16/25 04:32 Range/Units Serum Glucose 89 74-106 mg/dL Problem List/Assessment/Plan Problem List/Assessment/Plan Chest pain, likely coronary vasospasm vs endothelial dysfunction Chronic HFpEF, NYHA class II-III Mild mitral and tricuspid valve regurgitation (per previous echocardiogram in 2023) Postural orthostatic tachycardia syndrome (POTS) Hyperlipidemia Thyroid disease CVA without residual deficit Asthma Plan/Recommendation (Dr. Lowe): Patient seen and examined at bedside with who thoroughly explained plan of care with patient. We will proceed with obtaining a transthoracic echocardiogram to evaluate cardiac function. ESR and CRP levels are negative, acute pericarditis ruled out. The patient had an angiogram in October of 2023 in which she states no catheter based intervention was deemed necessary. Chest pain likely secondary to coronary vasospasm versus endothelial dysfunction. Given patient history of postural orthostatic tachycardia syndrome, we will initiate the patient on Florinef. Will also initiate low-dose prednisone to help with orthostatic hypotension. Continue with close cardiac surveillance and notify cardiology team immediately for any ECG changes. Further recommendations per clinical course and progression. Thank you for allowing us to care for this patient. Please call with any questions or concerns. This medical document was created using an electronic medical record system with voice recognition software and computerized dictation system. Although this document has been carefully reviewed, there might still be some phonetic and typographical errors. Occasional wrong-word or ``sound-alike substitutions may have occurred due to the inherent limitations of voice recognition software. These areas are purely typographical due to imperfections of the software programs and do not reflect any compromise in the patient's medical care. Please read the chart carefully and recognize, using context, where these substitutions have occurred. Plan discussed with: Patient Date of Service: Feb 18, 2025 Billing Provider: GABRIELLE ROJO Common Visit Codes: [id number] INP/OBS CARE(HIGH) GABRIELLE ROJO Feb 18, 2025 18:10
[2025-02-18] MEDS: ATORVASTATIN 20 MG TAB PO SCH (22:00)
[2025-02-19] VITALS (7 sets, daily range): BP systolic 112–140; BP diastolic 78–90; PULSE 18–85; RESP 17–19; TEMP 97.7–98.6; O2SAT 95–100
[2025-02-19] MEDS: HYDROcodone-ACET 5/325MG TAB PO PRN (00:14)
[2025-02-19] MEDS: FLUDROCORTISONE ACETATE 0.1 MG TAB PO SCH (10:28)
--- NOTE | 2025-02-19 14:00 | DVHPN2 ---
Consult Progress Note Subjective Review of Systems: NEURO:Abnormal (Episodes of dizzines with ambulation.) Objective vital signs Vital Sign Date Time Temp Pulse Resp B/P (MAP) Pulse Ox O2 Delivery O2 Flow Rate FiO2 02/19/25 08:30 97.9 64 17 116/80 (92) 100 97.9 64 02/19/25 07:30 Room Air* 0 21 Total Intake and Output 02/18/25 02/18/25 02/19/25 15:00 23:00 07:00 Intake Total 220 ml Balance 220 ml medications Current Medications Medications Dose Ordered Sig/Mady Route Start Time Stop Time Status Last Admin Dose Admin Aspirin 81 mg DAILY PO 02/18/25 10:00 02/19/25 10:28 81 MG Levothyroxine Sodium 75 mcg QAM@0600 PO 02/18/25 06:00 02/19/25 05:41 75 MCG Atorvastatin Calcium 10 mg HS PO 02/18/25 22:00 Ondansetron HCl 4 mg Q4HP PRN IV 02/17/25 23:00 02/19/25 12:28 4 MG Acetaminophen 650 mg Q6HP PRN PO 02/17/25 23:00 Nitroglycerin 0.4 mg Q5MINP PRN SL 02/17/25 23:00 Morphine Sulfate 2 mg Q30M PRN IV 02/17/25 23:00 Ketorolac Tromethamine 15 mg Q6HPRN PRN IV 02/17/25 23:00 02/22/25 22:59 02/19/25 10:29 15 MG Pantoprazole Sodium 40 mg DAILY IV 02/18/25 10:00 02/19/25 10:28 40 MG Acetaminophen/ Hydrocodone Bitart 1 tab Q4HP PRN PO 02/17/25 23:00 02/19/25 12:24 1 TAB Docusate Sodium 100 mg BIDPRN PRN PO 02/17/25 23:00 02/19/25 00:13 100 MG Fludrocortisone Acetate 0.1 mg DAILY PO 02/19/25 10:00 02/19/25 10:28 0.1 MG Prednisone 5 mg DAILY PO 02/19/25 10:00 02/19/25 10:28 5 MG Examination: CVS:Normal (Telemetry reviewed, consistent with sinus rhythm at 79 bpm, no significant overnight events noted.) laboratory and microbiology Laboratory Tests 02/16/25 04:32 Test 02/16/25 04:32 Range/Units Serum Glucose 89 74-106 mg/dL Problem List/Assessment/Plan Problem List/Assessment/Plan Problem List/Assessment/Plan Chest pain, likely coronary vasospasm vs endothelial dysfunction Chronic HFpEF, NYHA class II-III Mild mitral and tricuspid valve regurgitation (per previous echocardiogram in 2023) Postural orthostatic tachycardia syndrome (POTS) Hyperlipidemia Thyroid disease CVA without residual deficit Asthma Plan/Recommendation (Dr. Lowe): Patient seen and examined at bedside with who thoroughly explained plan of care with patient. Follow up ECHO. ESR and CRP levels are negative, acute pericarditis ruled out. The patient had an angiogram in October of 2023 in which she states no catheter based intervention was deemed necessary. Chest pain likely secondary to coronary vasospasm versus endothelial dysfunction. Given patient history of postural orthostatic tachycardia syndrome, we will initiate the patient on Florinef. Will also initiate low-dose prednisone to help with orthostatic hypotension. Continue with close cardiac surveillance and notify cardiology team immediately for any ECG changes. Further recommendations per clinical course and progression. Thank you for allowing us to care for this patient. Please call with any questions or concerns. POC discussed with patient. Follow up with [facility] recommended for continued workup for possible PPM. BP and HR stable overnight. This medical document was created using an electronic medical record system with voice recognition software and computerized dictation system. Although this document has been carefully reviewed, there might still be some phonetic and typographical errors. Occasional wrong-word or ``sound-alike substitutions may have occurred due to the inherent limitations of voice recognition software. These areas are purely typographical due to imperfections of the software programs and do not reflect any compromise in the patient's medical care. Please read the chart carefully and recognize, using context, where these substitutions have occurred. Plan discussed with: Patient Date of Service: Feb 19, 2025 Billing Provider: KALEN KHAN Common Visit Codes: [id number] INP/OBS CARE(HIGH) KALEN KHAN Feb 19, 2025 13:59
--- NOTE | 2025-02-19 23:31 | DVHSR ---
APPROVED REPORT EXAM: Two-dimensional and M-mode echocardiogram with Doppler and color Doppler. Blood Pressure: 97/63 mmHg INDICATION History of CHF RISK FACTORS Height: 5' 9", Weight: 147 DIMENSIONS LVDd4.7 (3.8-5.7cm)LA (2D)4.5 (1.9-4.0cm)Aortic Root3.1 (2.0-3.7cm) LVDs3.3 (2.5-4.0cm)LA (MM) (1.9-4.0cm)Aortic Cusp Exc1.4 (1.5-2.0cm) EF (%) 57.0 (55-70%)Rt. Atrium4.3 (1.9-4.0cm)Asc. Aorta cm IVSd1.0 (0.7-1.1cm)RV (D) (1.8-2.4cm) PWd0.8 (0.7-1.1cm) Mitral Valve MitralMitral Stenosis E wave0.70m/sMV Mean GR.mmHg A wave0.60m/sMV Peak GR.mmHg E/A ratio1.22D MVAcm2 Aortic Valve Aortic ValveAortic Stenosis V10.80m/[place] Mean GR.3mmHg V21.20m/[place] Peak GR.6mmHg LVOT Diameter2.1 (1.8-2.4cm)Doppler AVA2.31cm2 Other Information Quality : Technically LimitedRhythm : Technically limited study due to patient with breast implants. Conclusion LV EF IS 65% MILD MVP NORMAL TV,PV AND AORTIC VALVE MODERATE DEGREE MITRAL REGURGITATION SLIGHTLY DILATEDLEFT ATRIUM SLIGHTLY DILATED RV AND RA NO EFFUSION NO MASS NO THROMBUS NO VEGETATION
[2025-02-20] VITALS (8 sets, daily range): BP systolic 103–127; BP diastolic 63–83; PULSE 59–92; RESP 14–18; TEMP 97.9–98.4; O2SAT 99–100
--- NOTE | 2025-02-20 11:02 | DVHPN2 ---
Consult Progress Note Subjective Patient reports: Feels better Objective vital signs Vital Sign Date Time Temp Pulse Resp B/P (MAP) Pulse Ox O2 Delivery O2 Flow Rate FiO2 02/20/25 09:00 98.4 59 16 108/67 (81) 100 98.4 02/20/25 07:30 Room Air* 0 21 medications Current Medications Medications Dose Ordered Sig/Mady Route Start Time Stop Time Status Last Admin Dose Admin Aspirin 81 mg DAILY PO 02/18/25 10:00 02/20/25 09:01 81 MG Levothyroxine Sodium 75 mcg QAM@0600 PO 02/18/25 06:00 02/20/25 05:32 75 MCG Atorvastatin Calcium 10 mg HS PO 02/18/25 22:00 02/19/25 20:46 10 MG Ondansetron HCl 4 mg Q4HP PRN IV 02/17/25 23:00 02/20/25 05:32 4 MG Acetaminophen 650 mg Q6HP PRN PO 02/17/25 23:00 Nitroglycerin 0.4 mg Q5MINP PRN SL 02/17/25 23:00 Morphine Sulfate 2 mg Q30M PRN IV 02/17/25 23:00 Ketorolac Tromethamine 15 mg Q6HPRN PRN IV 02/17/25 23:00 02/22/25 22:59 02/20/25 09:00 15 MG Pantoprazole Sodium 40 mg DAILY IV 02/18/25 10:00 02/20/25 09:00 40 MG Acetaminophen/ Hydrocodone Bitart 1 tab Q4HP PRN PO 02/17/25 23:00 02/20/25 05:32 1 TAB Docusate Sodium 100 mg BIDPRN PRN PO 02/17/25 23:00 02/20/25 05:31 100 MG Fludrocortisone Acetate 0.1 mg DAILY PO 02/19/25 10:00 02/20/25 09:01 0.1 MG Prednisone 5 mg DAILY PO 02/19/25 10:00 02/19/25 10:28 5 MG Examination: CVS:Normal (Telemetry reviewed consistent with sinus rhythm at 61 beats per minute) laboratory and microbiology Laboratory Tests 02/16/25 04:32 Test 02/16/25 04:32 Range/Units Serum Glucose 89 74-106 mg/dL Problem List/Assessment/Plan Problem List/Assessment/Plan Problem List/Assessment/Plan Chest pain, likely coronary vasospasm vs endothelial dysfunction Chronic HFpEF, NYHA class II-III Mild mitral and tricuspid valve regurgitation (per previous echocardiogram in 2023) Postural orthostatic tachycardia syndrome (POTS) Hyperlipidemia Thyroid disease CVA without residual deficit Asthma Plan/Recommendation (Dr. Lowe): Patient seen and examined at bedside with who thoroughly explained plan of care with patient. Follow up ECHO. ESR and CRP levels are negative, acute pericarditis ruled out. The patient had an angiogram in October of 2023 in which she states no catheter based intervention was deemed necessary. Chest pain likely secondary to coronary vasospasm versus endothelial dysfunction. Given patient history of postural orthostatic tachycardia syndrome, we will initiate the patient on Florinef. Will also initiate low-dose prednisone to help with orthostatic hypotension. Continue with close cardiac surveillance and notify cardiology team immediately for any ECG changes. Further recommendations per clinical course and progression. Thank you for allowing us to care for this patient. Please call with any questions or concerns. POC discussed with patient. Follow up with [facility] recommended for continued workup for possible PPM. BP and HR stable overnight. 02/20/2025 - echo reviewed normal EF 65% mild MVP moderate MR. BP stable, lightheadedness improved. Heart rate stable on telemetry reviewed overnight. Patient to follow up with specialty at [place] for further evaluation for possible ppm. Stable from Cardiology standpoint for [place]. This medical document was created using an electronic medical record system with voice recognition software and computerized dictation system. Although this document has been carefully reviewed, there might still be some phonetic and typographical errors. Occasional wrong-word or ``sound-alike substitutions may have occurred due to the inherent limitations of voice recognition software. These areas are purely typographical due to imperfections of the software programs and do not reflect any compromise in the patient's medical care. Please read the chart carefully and recognize, using context, where these substitutions have occurred. Plan discussed with: Patient Dietary Evaluation Review Comments: continue current POC Expected Outcomes/Goals: Fu 3-5 days to meet 75% estimated needs Date of Service: Feb 20, 2025 Billing Provider: KALEN KHAN Common Visit Codes: [id number] INP/OBS CARE(HIGH) KALEN KHAN Feb 20, 2025 11:02
[2025-02-20] MEDS: ACETAMINOPHEN 325 MG TAB PO PRN (14:37)
--- NOTE | 2025-02-20 14:53 | DVHPN2 ---
Reviewed: Care Plan Changes from previous H/P or p: No Changes Eyes: No Pain, No Vision change, No Conjunctivae inflammation, No Eyelid inflammation, No Other, No Redness ENT: No Ear pain, No Ear discharge, No Nose pain, No Nose discharge, No Nose congestion, No Mouth pain, No Mouth swelling, No Throat pain, No Throat swelling, No Other Cardiovascular: Chest Pain; No Palpitations, No Orthopnea, No Paroxysmal Noc. Dyspnea, No Edema, No Lt Headedness, No Other Respiratory: No Cough, No Dry, No Shortness of breath, No SOB with excertion, No Wheezing, No Hemoptysis, No Pleuritic Pain, No Sputum, No Other Gastrointestinal: Nausea; No Vomiting, No Abdominal Pain, No Diarrhea, No Constipation, No Melena, No Hematochezia, No Other Genitourinary: No Dysuria, No Frequency, No Incontinence, No Hematuria, No Retention, No Other Musculoskeletal: No other, No neck pain, No shoulder pain, No arm pain, No back pain, No hand pain, No leg pain, No foot pain Skin: No Rash, No Lesions, No Jaundice, No Bruising, No Other Objective Vitals Vital Signs Date Time Temp Pulse Resp B/P (MAP) Pulse Ox O2 Delivery O2 Flow Rate FiO2 02/20/25 13:00 97.9 68 16 125/83 (97) 100 97.9 02/20/25 07:30 Room Air* 0 21 Medications Current Medications Medications Dose Ordered Sig/Mady Route Start Time Stop Time Status Last Admin Dose Admin Aspirin 81 mg DAILY PO 02/18/25 10:00 02/20/25 09:01 81 MG Levothyroxine Sodium 75 mcg QAM@0600 PO 02/18/25 06:00 02/20/25 05:32 75 MCG Atorvastatin Calcium 10 mg HS PO 02/18/25 22:00 02/19/25 20:46 10 MG Ondansetron HCl 4 mg Q4HP PRN IV 02/17/25 23:00 02/20/25 11:29 4 MG Acetaminophen 650 mg Q6HP PRN PO 02/17/25 23:00 02/20/25 14:37 650 MG Nitroglycerin 0.4 mg Q5MINP PRN SL 02/17/25 23:00 Morphine Sulfate 2 mg Q30M PRN IV 02/17/25 23:00 Ketorolac Tromethamine 15 mg Q6HPRN PRN IV 02/17/25 23:00 02/22/25 22:59 02/20/25 09:00 15 MG Pantoprazole Sodium 40 mg DAILY IV 02/18/25 10:00 02/20/25 09:00 40 MG Acetaminophen/ Hydrocodone Bitart 1 tab Q4HP PRN PO 02/17/25 23:00 02/20/25 11:29 1 TAB Docusate Sodium 100 mg BIDPRN PRN PO 02/17/25 23:00 02/20/25 05:31 100 MG Fludrocortisone Acetate 0.1 mg DAILY PO 02/19/25 10:00 02/20/25 09:01 0.1 MG Prednisone 5 mg DAILY PO 02/19/25 10:00 02/20/25 12:22 5 MG Laboratory Results Laboratory Tests 02/16/25 04:32 Urinalysis Test 02/15/25 16:06 Urine Color Yellow (Yellow) Urine Clarity Clear (Clear) Urine pH 5.5 (5.0-9.0) Urine Specific [place] 1.031 (1.001-1.035) Urine Protein Negative (Negative) Urine Ketones Negative (Negative) Urine Blood Negative /uL (Negative) Urine Nitrite Negative (Negative) Urine Bilirubin Negative (Negative) Urine Urobilinogen Normal mg/dL (Negative) Urine Leukocyte Esterase Negative /uL (Negative) Urine RBC 1 /hpf (0 - 4) Urine Microscopic WBC < 1 /HPF (0-5) Urine Squamous Epithelial Cells Few /hpf (<5) Urine Bacteria None seen /hpf (None Seen) Urine Mucus Few (None Seen) Urine Glucose Normal mg/dL (Normal) Assessment/Plan Assessment/Plan Chest pain of unknown etiology Generalized weakness Date of Service: Feb 16, 2025 DINORAH COLLAZO DO Feb 20, 2025 14:53
[2025-02-20] MEDS ORDERED: HYDROcodone-ACET 10/325MG TAB PO PRN ×2 (15:15→16:00)
[2025-02-20] MEDS ORDERED: ACETAMINOPHEN 325 MG TAB PO PRN (16:00)
[2025-02-20] MEDS: HYDROcodone-ACET 10/325MG TAB PO PRN (17:16)
[2025-02-20] MEDS: KETOROLAC TROMETH 30 MG/ML 1ML VIAL IV PRN (19:55)
[2025-02-21] VITALS (8 sets, daily range): BP systolic 108–122; BP diastolic 66–75; PULSE 59–80; RESP 15–18; TEMP 97.5–98.6; O2SAT 97–100
--- NOTE | 2025-02-21 13:36 | DVHPN2 ---
Reviewed: Care Plan, H&P Changes from previous H/P or p: No Changes General: Per HPI Eyes: No Pain, No Vision change, No Conjunctivae inflammation, No Eyelid inflammation, No Other, No Redness ENT: No Ear pain, No Ear discharge, No Nose pain, No Nose discharge, No Nose congestion, No Mouth pain, No Mouth swelling, No Throat pain, No Throat swelling, No Other Cardiovascular: Chest Pain; No Palpitations, No Orthopnea, No Paroxysmal Noc. Dyspnea, No Edema, No Lt Headedness, No Other Respiratory: No Cough, No Dry, No Shortness of breath, No SOB with excertion, No Wheezing, No Hemoptysis, No Pleuritic Pain, No Sputum, No Other Gastrointestinal: Nausea; No Vomiting, No Abdominal Pain, No Diarrhea, No Constipation, No Melena, No Hematochezia, No Other Genitourinary: No Dysuria, No Frequency, No Incontinence, No Hematuria, No Retention, No Other Musculoskeletal: No other, No neck pain, No shoulder pain, No arm pain, No back pain, No hand pain, No leg pain, No foot pain Skin: No Rash, No Lesions, No Jaundice, No Bruising, No Other Objective Vitals Vital Signs Date Time Temp Pulse Resp B/P (MAP) Pulse Ox O2 Delivery O2 Flow Rate FiO2 02/21/25 09:00 98.6 80 17 113/70 (84) 98 98.6 02/21/25 07:30 Room Air* 0 21 Medications Current Medications Medications Dose Ordered Sig/Mady Route Start Time Stop Time Status Last Admin Dose Admin Aspirin 81 mg DAILY PO 02/18/25 10:00 02/21/25 09:16 81 MG Levothyroxine Sodium 75 mcg QAM@0600 PO 02/18/25 06:00 02/21/25 06:30 75 MCG Atorvastatin Calcium 10 mg HS PO 02/18/25 22:00 02/20/25 22:23 10 MG Ondansetron HCl 4 mg Q4HP PRN IV 02/17/25 23:00 02/20/25 11:29 4 MG Nitroglycerin 0.4 mg Q5MINP PRN SL 02/17/25 23:00 Morphine Sulfate 2 mg Q30M PRN IV 02/17/25 23:00 Pantoprazole Sodium 40 mg DAILY IV 02/18/25 10:00 02/21/25 09:16 40 MG Docusate Sodium 100 mg BIDPRN PRN PO 02/17/25 23:00 02/21/25 09:15 100 MG Fludrocortisone Acetate 0.1 mg DAILY PO 02/19/25 10:00 02/21/25 09:16 0.1 MG Prednisone 5 mg DAILY PO 02/19/25 10:00 02/21/25 09:16 5 MG Ketorolac Tromethamine 30 mg Q6HPRN PRN IV 02/20/25 15:30 02/25/25 15:29 02/21/25 10:10 30 MG Acetaminophen 650 mg Q6HP PRN PO 02/20/25 16:00 Acetaminophen/ Hydrocodone Bitart 1 tab Q4HP PRN PO 02/20/25 16:00 02/21/25 11:43 1 TAB Laboratory Results Laboratory Tests 02/16/25 04:32 Urinalysis Test 02/15/25 16:06 Urine Color Yellow (Yellow) Urine Clarity Clear (Clear) Urine pH 5.5 (5.0-9.0) Urine Specific [place] 1.031 (1.001-1.035) Urine Protein Negative (Negative) Urine Ketones Negative (Negative) Urine Blood Negative /uL (Negative) Urine Nitrite Negative (Negative) Urine Bilirubin Negative (Negative) Urine Urobilinogen Normal mg/dL (Negative) Urine Leukocyte Esterase Negative /uL (Negative) Urine RBC 1 /hpf (0 - 4) Urine Microscopic WBC < 1 /HPF (0-5) Urine Squamous Epithelial Cells Few /hpf (<5) Urine Bacteria None seen /hpf (None Seen) Urine Mucus Few (None Seen) Urine Glucose Normal mg/dL (Normal) Assessment/Plan Assessment/Plan Chest pain of unknown etiology Generalized weakness My Orders Orders - DINORAH COLLAZO DO Procedure Category Date Status Time Ketorolac Injection PHA 02/20/25 In Process (Toradol Injection) 15:30 Hydrocodone-Acet PHA 02/20/25 In Process 10/325mg Tab ([place] 16:00 Date of Service: Feb 19, 2025 Common Visit Codes: [id number] INP/OBS CARE(HIGH) DINORAH COLLAZO DO Feb 21, 2025 13:36
--- NOTE | 2025-02-21 13:36 | DVHPN2 ---
Reviewed: Care Plan Eyes: No Pain, No Vision change, No Conjunctivae inflammation, No Eyelid inflammation, No Other, No Redness ENT: No Ear pain, No Ear discharge, No Nose pain, No Nose discharge, No Nose congestion, No Mouth pain, No Mouth swelling, No Throat pain, No Throat swelling, No Other Cardiovascular: Chest Pain; No Palpitations, No Orthopnea, No Paroxysmal Noc. Dyspnea, No Edema, No Lt Headedness, No Other Respiratory: No Cough, No Dry, No Shortness of breath, No SOB with excertion, No Wheezing, No Hemoptysis, No Pleuritic Pain, No Sputum, No Other Gastrointestinal: Nausea; No Vomiting, No Abdominal Pain, No Diarrhea, No Constipation, No Melena, No Hematochezia, No Other Genitourinary: No Dysuria, No Frequency, No Incontinence, No Hematuria, No Retention, No Other Musculoskeletal: No other, No neck pain, No shoulder pain, No arm pain, No back pain, No hand pain, No leg pain, No foot pain Skin: No Rash, No Lesions, No Jaundice, No Bruising, No Other Objective Vitals Vital Signs Date Time Temp Pulse Resp B/P (MAP) Pulse Ox O2 Delivery O2 Flow Rate FiO2 02/21/25 09:00 98.6 80 17 113/70 (84) 98 98.6 02/21/25 07:30 Room Air* 0 21 Medications Current Medications Medications Dose Ordered Sig/Mayd Route Start Time Stop Time Status Last Admin Dose Admin Aspirin 81 mg DAILY PO 02/18/25 10:00 02/21/25 09:16 81 MG Levothyroxine Sodium 75 mcg QAM@0600 PO 02/18/25 06:00 02/21/25 06:30 75 MCG Atorvastatin Calcium 10 mg HS PO 02/18/25 22:00 02/20/25 22:23 10 MG Ondansetron HCl 4 mg Q4HP PRN IV 02/17/25 23:00 02/20/25 11:29 4 MG Nitroglycerin 0.4 mg Q5MINP PRN SL 02/17/25 23:00 Morphine Sulfate 2 mg Q30M PRN IV 02/17/25 23:00 Pantoprazole Sodium 40 mg DAILY IV 02/18/25 10:00 02/21/25 09:16 40 MG Docusate Sodium 100 mg BIDPRN PRN PO 02/17/25 23:00 02/21/25 09:15 100 MG Fludrocortisone Acetate 0.1 mg DAILY PO 02/19/25 10:00 02/21/25 09:16 0.1 MG Prednisone 5 mg DAILY PO 02/19/25 10:00 02/21/25 09:16 5 MG Ketorolac Tromethamine 30 mg Q6HPRN PRN IV 02/20/25 15:30 02/25/25 15:29 02/21/25 10:10 30 MG Acetaminophen 650 mg Q6HP PRN PO 02/20/25 16:00 Acetaminophen/ Hydrocodone Bitart 1 tab Q4HP PRN PO 02/20/25 16:00 02/21/25 11:43 1 TAB Laboratory Results Laboratory Tests 02/16/25 04:32 Urinalysis Test 02/15/25 16:06 Urine Color Yellow (Yellow) Urine Clarity Clear (Clear) Urine pH 5.5 (5.0-9.0) Urine Specific [place] 1.031 (1.001-1.035) Urine Protein Negative (Negative) Urine Ketones Negative (Negative) Urine Blood Negative /uL (Negative) Urine Nitrite Negative (Negative) Urine Bilirubin Negative (Negative) Urine Urobilinogen Normal mg/dL (Negative) Urine Leukocyte Esterase Negative /uL (Negative) Urine RBC 1 /hpf (0 - 4) Urine Microscopic WBC < 1 /HPF (0-5) Urine Squamous Epithelial Cells Few /hpf (<5) Urine Bacteria None seen /hpf (None Seen) Urine Mucus Few (None Seen) Urine Glucose Normal mg/dL (Normal) Assessment/Plan Assessment/Plan Chest pain of unknown etiology Generalized weakness My Orders Orders - DINORAH COLLAZO DO Procedure Category Date Status Time Ketorolac Injection PHA 02/20/25 In Process (Toradol Injection) 15:30 Hydrocodone-Acet PHA 02/20/25 In Process 10/325mg Tab ([place] 16:00 Date of Service: Feb 18, 2025 Common Visit Codes: [id number] INP/OBS CARE(HIGH) DINORAH COLLAZO DO Feb 21, 2025 13:36
[2025-02-21] MEDS ORDERED: PRE5T PO (13:37)
[2025-02-22] VITALS (7 sets, daily range): BP systolic 115–133; BP diastolic 69–95; PULSE 66–85; RESP 16–18; TEMP 97.7–99.4; O2SAT 98–100
[2025-02-22] MEDS: MORPHINE SULFATE INJ 2 MG/ml SYRG IV PRN (10:32)
[2025-02-22] MEDS ORDERED: FLU01T PO (16:23)
[2025-02-22] MEDS ORDERED: HYDR-4902 PO (20:03)
--- NOTE | 2025-02-22 20:07 | DVHDS2 ---
Discharge Summary Date of Admission Feb 15, 2025 at 21:14 Date of Discharge: Feb 22, 2025 Labs/Diagnostic Data: Laboratory Results Test 02/17/25 16:50 02/16/25 04:32 02/15/25 16:06 02/15/25 15:23 Erythrocyte Sedimentation Rate 2 mm/hr (0-20) C-Reactive Protein High Sensitivity 0.02 mg/dL (<1.0) White Blood Count 6.9 10^3/uL (4.4-10.8) Red Blood Count 4.50 10^6/uL (4.0-5.20) Hemoglobin 14.6 g/dL (12.2-16.2) Hematocrit 42.8 % (36.0-46.0) Mean Corpuscular Volume 95.3 fL (80.0-100.0) Mean Corpuscular Hemoglobin 32.5 pg (28.0-32.0) Mean Corpuscular Hemoglobin Concent 34.2 g/dL (32.0-36.0) Red Cell Distribution Width 13.0 % (11.8-14.3) Platelet Count 211 10^3/uL (140-450) Mean Platelet Volume 8.1 fL (6.9-10.8) Neutrophils (%) (Auto) 48.5 % (37.0-80.0) Lymphocytes (%) (Auto) 42.2 % (10.0-50.0) Monocytes (%) (Auto) 7.8 % (0.0-12.0) Eosinophils (%) (Auto) 0.8 % (0.0-7.0) Basophils (%) (Auto) 0.7 % (0.0-2.0) Neutrophils # (Auto) 3.4 10 ^3/uL (1.6-8.6) Lymphocytes # (Auto) 2.9 10 ^3/uL (0.4-5.4) Monocytes # (Auto) 0.5 10 ^3/uL (0-1.3) Eosinophils # (Auto) 0.1 10 ^3/uL (0-0.8) Basophils # (Auto) 0 10 ^3/uL (0-0.2) Nucleated Red Blood Cells 0.1 % Sodium Level 142 mmol/L (136-145) Potassium Level 4.0 mmol/L (3.5-5.1) Chloride Level 110 mmol/L (98-107) Carbon Dioxide Level 26 mmol/L (20-31) Anion Gap 6 (5-15) Blood Urea Nitrogen 10 mg/dL (9-23) Creatinine 0.87 mg/dL (0.550-1.02) Glomerular Filtration Rate Calc 83 mL/min (>90) BUN/Creatinine Ratio 11.5 (10.0-20.0) Serum Glucose 89 mg/dL (74-106) Calcium Level 9.6 mg/dL (8.7-10.4) Total Bilirubin 0.7 mg/dL (0.2-1.0) Aspartate Amino Transferase (AST) 27 U/L (<34) Alanine Aminotransferase (ALT) 18 U/L (7-40) Alkaline Phosphatase 67 U/L (46-116) Total Protein 7.3 g/dL (5.7-8.2) Albumin 4.5 g/dL (3.2-4.8) Urine Color Yellow (Yellow) Urine Clarity Clear (Clear) Urine pH 5.5 (5.0-9.0) Urine Specific [place] 1.031 (1.001-1.035) Urine Protein Negative (Negative) Urine Ketones Negative (Negative) Urine Blood Negative /uL (Negative) Urine Nitrite Negative (Negative) Urine Bilirubin Negative (Negative) Urine Urobilinogen Normal mg/dL (Negative) Urine Leukocyte Esterase Negative /uL (Negative) Urine RBC 1 /hpf (0 - 4) Urine Microscopic WBC < 1 /HPF (0-5) Urine Squamous Epithelial Cells Few /hpf (<5) Urine Bacteria None seen /hpf (None Seen) Urine Mucus Few (None Seen) Urine Glucose Normal mg/dL (Normal) Troponin I High Sensitivity < 3 ng/L (</=34) Test 02/15/25 14:10 B-Type Natriuretic Peptide 4.53 pg/mL (0-100) Thyroid Stimulating Hormone (TSH) 1.47 uIU/mL (0.55-4.78) Other Laboratory Tests 02/16/25 04:32 Brief Hx & Hospital Course: 44-year-old female with past medical history of thyroid disease, CHF, sinus tachycardia, and MATOS who presented to [facility] ED with complaint of chest pain. Patient reports she has been experiencing substernal intermittent chest pain since on Lars February 13, 2025. Patient reports symptoms progressively get worse with fatigue, nausea, dizziness, getting worse that prompted this visit. Patient was seen and evaluated in the ED, laboratory data shows WBC 6.7, platelets 207, sodium 144, potassium 3.8, BUN 15, creatinine 0.95, glucose 95, troponin < 3, BNP 4.33, TSH 1.47, blood pressure 115/72, heart rate 59, temperature 97.7 F, O2 saturation 99% on room air. Please see medication orders section in the computer. On my assessment, patient denied chest pain at this moment, no palpitations, no headache, no dizziness, no diaphoresis, no shortness of breath, no nausea, no vomiting, no fever, no chills. Patient was admitted for further evaluation and medical management. 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 Discharge Disposition: Home Discharge Instruct/Medications Diet: Cardiac 2g Na,low cholest Activity: No Restrictions, As Tolerated Follow Up/Referral: cardiology in 7 days Medications: prednisone, floricef Scheduled Acyclovir (Acyclovir), 1 TAB PO BID, (Reported) Atorvastatin Calcium (Lipitor), 1 TAB PO DAILY, (Reported) Diclofenac Sodium (Topical) (Diclofenac Sodium), 1 APPLIC TOP QID, (Reported) Estradiol (Gynodiol), 1 TAB PO DAILY, (Reported) Fludrocortisone Acetate (Florinef), 0.1 MG PO DAILY Hydrocodone-Acetaminophen (Hydrocodone Bitartrate/AC 5-325 mg), 1 TAB PO TID Ivabradine Hydrochloride (Corlanor), 1 TAB PO BID, (Reported) Levothyroxine Sodium (Levothyroxine Sodium), 1 TAB PO DAILY, (Reported) Lidocaine (Lidocaine), 1 PATCH TOP DAILY, (Reported) Nitroglycerin (Nitroglycerin Transdermal), 1 PATCH TOP DAILY, (Reported) Prednisone (Prednisone), 5 MG PO DAILY Trazodone Hcl (Trazodone Hcl), 1 TAB PO HS PRN, (Reported) Venlafaxine Hydrochloride (Venlafaxine Hcl), 1 TAB PO BID, (Reported) Discharge Statement: "Patient was advised to return to the ER or call 911 if any headaches, dizziness, shortness of breath, chest pain, abdominal pain, bleeding, fevers, or worsening of medical condition. Patient was counseled about treatment plan, medications, possible side effects, patientverbalized understanding. All questions were answered to the best of my ability. This discharge took greater then 30 minutes in planning, reviewing documentation, counseling the patient, and discussing with other team members." ASSESSMENT ASSESSMENT Assessment POTS Syndrome Date of Service: Feb 22, 2025 Billing Provider: LAINA BUSH MD Common Visit Codes: 64939-ZNO/OBS DISCH DAY >30min LAINA BUSH MD Feb 22, 2025 20:07
--- NOTE | 2025-02-23 07:33 | ECG ---
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
== END 2025-02-22 19:35 | disposition home or self-care (01) | DRG 198 ==
LOC: ER 14:05 → OVERFLOW 21:14 → TELE-WESTW 02-16 17:54
PROVIDERS: ADMIT Hospitalist; ATTEND Hospitalist
DX: I20.1 Angina pectoris with documented spasm (principal); I50.32 Chronic diastolic (congestive) heart failure; E07.9 Disorder of thyroid, unspecified; I25.2 Old myocardial infarction; J45.909 Unspecified asthma, uncomplicated; E78.5 Hyperlipidemia, unspecified; I08.1 Rheumatic disorders of both mitral and tricuspid valves; T14.90XA Injury, unspecified, initial encounter; Z90.710 Acquired absence of both cervix and uterus; Z79.82 Long term (current) use of aspirin; Z79.899 Other long term (current) drug therapy; Z83.3 Family history of diabetes mellitus; Z86.73 Personal history of transient ischemic attack (TIA), and cerebral infarction without residual deficits; X58.XXXA Exposure to other specified factors, initial encounter; Y93.89 Activity, other specified; Y92.89 Other specified places as the place of occurrence of the external cause; Y99.8 Other external cause status
CPT/HCPCS: 36415; 80048; 80053; 81001; 83880; 84443; 84484; 85025; 85652; 86141; 93005; 93306; G0378; J1885; J2405; J2470